=== PATIENT | male | born 1965 | race African-American/Black ===

== ENCOUNTER 2016-11-22 20:34 | Emergency (ER) | payer MEDICAID, OTHER ==
[~2016-11-22] VITALS: Ht 195.6 cm; Wt 99.0 kg
[2016-11-22 22:23] LABS: ANION GAP 13; CARBON DIOXIDE 26 mEq/L (21-32); CHLORIDE 107 mEq/L (98-107); INDEX HEMOLYSI 1 (1-3); INDEX ICTERIC 1 (1-4); INDEX LIPEMIC 1 (1-3); UREA NITROGEN BLOOD 15 mg/dL (7-21); eGFR > 60 mL/min (>60)
[2016-11-22 22:24] LABS: BASOPHILS % 0.4 % (0.0-2.0); EOSINOPHILS % 0.1 % (0.0-5.0); HEMATOCRIT. 46.9 % (42.0-52.0); HEMOGLOBIN. 15.9 g/dL (14.0-18.0); LYMPHOCYTES % 13.8 % (20.0-50.0); MEAN CORPUSCULAR HEMOGLOBIN 29.7 pg (28.0-32.0); MEAN CORPUSCULAR HGB CONC 33.9 g/dL (31.0-37.0); MEAN CORPUSCULAR VOLUME 87.6 fL (80.0-94.0); MEAN PLATELET VOLUME 7.5 fl (7.4-10.4); MONOCYTES % 6.5 % (2.0-8.0); NEUTROPHILS % 79.2 % (40.0-76.0); PLATELET 249 x1000/uL (130-400); RED BLOOD CELL COUNT 5.35 mill/uL (4.7-6.1); WHITE BLOOD COUNT 8.9 x1000/uL (4.5-11.0)
[2016-11-22 23:00] VITALS: BP 142/76
== END 2016-11-22 23:01 | disposition home or self-care (01) ==
LOC: ER 21:00
DX: R33.9 Retention of urine, unspecified (principal); N40.0 Benign prostatic hyperplasia without lower urinary tract symptoms; I10 Essential (primary) hypertension; Z90.49 Acquired absence of other specified parts of digestive tract
CPT/HCPCS: 36415; 80048; 85025; 99284; Z7610

== ENCOUNTER 2016-11-23 01:51 | Emergency (ER) | payer MEDICAID, OTHER ==
[~2016-11-23] VITALS: Ht 185.4 cm; Wt 91.0 kg
[2016-11-23 03:10] VITALS: BP 147/76
== END 2016-11-23 03:11 | disposition home or self-care (01) ==
LOC: ER 02:00
DX: R33.9 Retention of urine, unspecified (principal); I10 Essential (primary) hypertension; Z90.49 Acquired absence of other specified parts of digestive tract
CPT/HCPCS: 99283; Z7610

== ENCOUNTER 2016-11-23 06:29 | Emergency (ER) | payer OTHER ==
[~2016-11-23] VITALS: Ht 193 cm; Wt 93.0 kg
[2016-11-23 07:54] LABS: BASOPHILS % 0.7 % (0.0-2.0); EOSINOPHILS % 0.1 % (0.0-5.0); HEMATOCRIT. 45.5 % (42.0-52.0); HEMOGLOBIN. 15.3 g/dL (14.0-18.0); LYMPHOCYTES % 8.5 % (20.0-50.0); MEAN CORPUSCULAR HEMOGLOBIN 29.4 pg (28.0-32.0); MEAN CORPUSCULAR HGB CONC 33.6 g/dL (31.0-37.0); MEAN CORPUSCULAR VOLUME 87.5 fL (80.0-94.0); MEAN PLATELET VOLUME 7.2 fl (7.4-10.4); MONOCYTES % 6.5 % (2.0-8.0); NEUTROPHILS % 84.2 % (40.0-76.0); PLATELET 236 x1000/uL (130-400); RED CELL DISTRIBUTION WIDTH 13.8 % (11.6-14.6); WHITE BLOOD COUNT 8.6 x1000/uL (4.5-11.0)
[2016-11-23 08:02] LABS: ANION GAP 10; CARBON DIOXIDE 30 mEq/L (21-32); CHLORIDE 107 mEq/L (98-107); INDEX HEMOLYSI 1 (1-3); INDEX ICTERIC 1 (1-4); INDEX LIPEMIC 1 (1-3); UREA NITROGEN BLOOD 11 mg/dL (7-21)
[2016-11-23 08:05] LABS: eGFR > 60 mL/min (>60)
[2016-11-23 09:53] LABS: CLARITY URINE CLOUDY (CLEAR); COLOR URINE YELLOW (YELLOW); GLUCOSE URINE NEGATIVE (NEGATIVE); KETONES URINE TRACE (NEGATIVE); LEUKOCYTE ESTERASE URINE NEGATIVE (NEGATIVE); NITRITE URINE NEGATIVE (NEGATIVE); OCCULT BLOOD URINE TRACE (NEGATIVE); PH URINE 7.5 (4.5-8.0); PROTEIN URINE NEGATIVE (NEGATIVE); SPECIFIC GRAVITY URINE 1.014 (1.005-1.030); UROBILINOGEN URINE 0.2 E.U./dL (0.2-1.0)
[2016-11-23 10:20] LABS: RBC URINE 0-2 /hpf (0-2); WBC URINE NONE SEEN /hpf (0-2)
[2016-11-23 10:21] LABS: BACTERIA URINE 1+; SQUAMOUS EPITHELIAL CELL URINE NONE SEEN /lpf (RARE/1+)
[2016-11-23 11:04] VITALS: BP 146/98
== END 2016-11-23 11:02 | disposition home or self-care (01) ==
LOC: ER 06:40
DX: R33.8 Other retention of urine (principal)
CPT/HCPCS: 36415; 80048; 81001; 85025; 99284

== ENCOUNTER 2016-11-23 18:59 | Emergency (ER) | payer OTHER ==
[~2016-11-23] VITALS: Ht 195.6 cm; Wt 97.0 kg
[2016-11-24 01:20] LABS: CLARITY URINE CLEAR (CLEAR); COLOR URINE YELLOW (YELLOW); GLUCOSE URINE NEGATIVE (NEGATIVE); KETONES URINE 1+ (NEGATIVE); LEUKOCYTE ESTERASE URINE NEGATIVE (NEGATIVE); NITRITE URINE NEGATIVE (NEGATIVE); OCCULT BLOOD URINE 1+ (NEGATIVE); PH URINE 5.5 (4.5-8.0); PROTEIN URINE NEGATIVE (NEGATIVE); SPECIFIC GRAVITY URINE 1.023 (1.005-1.030); UROBILINOGEN URINE 0.2 E.U./dL (0.2-1.0)
[2016-11-24 01:22] LABS: BACTERIA URINE NONE SEEN; CALCIUM PHOSPHATE CRYSTALS UR NONE SEEN /lpf; RBC URINE 0-2 /hpf (0-2); SQUAMOUS EPITHELIAL CELL URINE NONE SEEN /lpf (RARE/1+); WAXY CASTS URINE NONE SEEN /lpf; WBC URINE 0-2 /hpf (0-2); YEAST URINE NONE SEEN
[2016-11-24 04:30] VITALS: BP 143/86
== END 2016-11-24 04:31 | disposition home or self-care (01) ==
LOC: ER 19:01
DX: R35.0 Frequency of micturition (principal); I10 Essential (primary) hypertension
CPT/HCPCS: 36415; 81001; 84153; 99284; Z7610

== ENCOUNTER 2016-12-03 23:48 | Emergency (ER) | payer OTHER ==
[~2016-12-03] VITALS: Ht 195.6 cm; Wt 96.0 kg
[2016-12-04 00:45] LABS: CLARITY URINE CLEAR (CLEAR); COLOR URINE YELLOW (YELLOW); GLUCOSE URINE NEGATIVE (NEGATIVE); KETONES URINE 1+ (NEGATIVE); LEUKOCYTE ESTERASE URINE NEGATIVE (NEGATIVE); NITRITE URINE NEGATIVE (NEGATIVE); OCCULT BLOOD URINE TRACE (NEGATIVE); PROTEIN URINE NEGATIVE (NEGATIVE); SPECIFIC GRAVITY URINE 1.023 (1.005-1.030); UROBILINOGEN URINE 0.2 E.U./dL (0.2-1.0)
[2016-12-04 00:46] LABS: BACTERIA URINE NONE SEEN; CALCIUM PHOSPHATE CRYSTALS UR NONE SEEN /lpf; SQUAMOUS EPITHELIAL CELL URINE NONE SEEN /lpf (RARE/1+); WAXY CASTS URINE NONE SEEN /lpf; WBC URINE 0-2 /hpf (0-2); YEAST URINE NONE SEEN
[2016-12-04 01:45] VITALS: BP 115/67
== END 2016-12-04 01:45 | disposition home or self-care (01) ==
LOC: ER 23:50
DX: R33.9 Retention of urine, unspecified (principal); N40.0 Benign prostatic hyperplasia without lower urinary tract symptoms; I10 Essential (primary) hypertension; R10.30 Lower abdominal pain, unspecified; Z90.49 Acquired absence of other specified parts of digestive tract
CPT/HCPCS: 51702; 81001; 99284; Z7610

== ENCOUNTER 2017-06-07 07:03 | Emergency (ER) | payer OTHER ==
[~2017-06-07] VITALS: Ht 195.6 cm; Wt 95.0 kg
[2017-06-07 07:12] VITALS: BP 127/70
== END 2017-06-07 10:03 | disposition left against medical advice (07) ==
LOC: ER 07:03
DX: H61.21 Impacted cerumen, right ear (principal)
CPT/HCPCS: 69209; 99282; X7700; Z7610

== ENCOUNTER 2019-07-18 01:15 | Emergency (ER) | payer OTHER ==
[~2019-07-18] VITALS: Ht 195.6 cm; Wt 103.0 kg
[2019-07-18] MEDS ORDERED: SODIUM CHLORIDE 0.9% 1,000 ML IV ONE (01:36)
[2019-07-18] MEDS ORDERED: ASPIRIN 81MG TABLET PO ONE (01:45)
[2019-07-18] MEDS ORDERED: DILTIAZEM HCL 120MG CAPSULE CD 24HR PO ONE (01:45)
[2019-07-18 02:15] LABS: BASOPHILS % 0.7 % (0.0-2.0); EOSINOPHILS % 1.8 % (0.0-5.0); HEMATOCRIT. 46.8 % (42.0-52.0); HEMOGLOBIN. 15.9 g/dL (14.0-18.0); LYMPHOCYTES % 23.3 % (20.0-50.0); MEAN CORPUSCULAR HEMOGLOBIN 29.7 pg (28.0-32.0); MEAN CORPUSCULAR VOLUME 87.3 fL (80.0-94.0); MEAN PLATELET VOLUME 6.8 fl (7.4-10.4); MONOCYTES % 8.3 % (2.0-8.0); NEUTROPHILS % 65.9 % (40.0-76.0); PLATELET 272 x1000/uL (130-400); RED BLOOD CELL COUNT 5.36 mill/uL (4.7-6.1); RED CELL DISTRIBUTION WIDTH 14.4 % (11.6-14.6)
[2019-07-18 02:16] LABS: CHLORIDE 108 mEq/L (98-107)
[2019-07-18 02:23] LABS: ETHANOL BLOOD < 10 mg/dL
[2019-07-18 02:28] LABS: T4 FREE 0.87 ng/dL (0.76-1.46)
[2019-07-18 02:39] LABS: *BENZODIAZEPINES SCREEN URINE NEGATIVE (NEGATIVE); *COCAINE SCREEN URINE NEGATIVE (NEGATIVE); METHADONE URINE SCREEN NEGATIVE (NEGATIVE); OPIATES URINE SCREEN NEGATIVE (NEGATIVE)
[2019-07-18 02:40] LABS: *AMPHETAMINES SCREEN URINE NEGATIVE (NEGATIVE); *BARBITURATES SCREEN URINE NEGATIVE (NEGATIVE); CANNABINOID URINE SCREEN NEGATIVE (NEGATIVE); PHENCYCLIDINE URINE SCREEN NEGATIVE (NEGATIVE)
[2019-07-18 03:12] LABS: PARTIAL THROMBOPLASTIN TIME 29.6 sec (23.4-31.0); PROTHROMBIN TIME 10.2 sec (9.6-11.0)
[2019-07-18 06:00] VITALS: BP 129/82
[2019-07-18] MEDS ORDERED: ENOXAPARIN 100MG/ML SYR SUBCUT SCH (06:00)
== END 2019-07-18 06:29 | disposition short-term general hospital (02) ==
LOC: ER 01:15
DX: I48.91 Unspecified atrial fibrillation (principal); F41.9 Anxiety disorder, unspecified; I10 Essential (primary) hypertension; N40.0 Benign prostatic hyperplasia without lower urinary tract symptoms
CPT/HCPCS: 36415; 71045; 80053; 80305; 80320; 83880; 84439; 84443; 84484; 85025; 85379; 85610; 85730; 93005; 96372; 99285; J1650; J7030; Z7610; G0480

== ENCOUNTER 2023-11-19 17:03 | Emergency (ER) | payer OTHER ==
[~2023-11-19] VITALS: Ht 190.5 cm; Wt 90.0 kg
[2023-11-19 17:11] VITALS: O2SAT 97
[2023-11-19 19:54] LABS: BASOPHILS % 0.5 % (0.0-2.0); EOSINOPHILS % 0.1 % (0.0-5.0); HEMATOCRIT. 47.8 % (42.0-52.0); LYMPHOCYTES % 9.1 % (20.0-50.0); MEAN CORPUSCULAR HEMOGLOBIN 29.7 pg (28.0-32.0); MEAN CORPUSCULAR HGB CONC 33.4 g/dL (31.0-37.0); MEAN CORPUSCULAR VOLUME 88.7 fL (80.0-94.0); MEAN PLATELET VOLUME 7.2 fl (7.4-10.4); MONOCYTES % 4.6 % (2.0-8.0); NEUTROPHILS % 85.7 % (40.0-76.0); PLATELET 311 x1000/uL (130-400); RED BLOOD CELL COUNT 5.39 mill/uL (4.7-6.1); RED CELL DISTRIBUTION WIDTH 14.1 % (11.6-14.6); WHITE BLOOD COUNT 12.6 x1000/uL (4.5-11.0)
[2023-11-19 20:06] LABS: ALANINE AMINOTRANSFERASE 21 IU/L (10-49); ALBUMIN 4.9 g/dL (3.2-4.8); ASPARTATE AMINOTRANSFERASE 24 IU/L (<34); BILIRUBIN TOTAL 0.9 mg/dL (0.1-1.0); CALCIUM 9.4 mg/dL (8.7-10.4); CARBON DIOXIDE 26 mEq/L (21-32); CHLORIDE 107 mEq/L (98-107); CREATININE 1.1 mg/dL (0.6-1.3); GLUCOSE 106 mg/dL (70-105); POTASSIUM 3.4 mEq/L (3.5-5.1); PROTEIN TOTAL 8.3 g/dL (6.0-8.3); SODIUM 141 mEq/L (136-145); UREA NITROGEN BLOOD 16 mg/dL (9-23)
[2023-11-19 21:52] LABS: CLARITY URINE CLEAR (CLEAR); COLOR URINE YELLOW (YELLOW); GLUCOSE URINE NEGATIVE (NEGATIVE); KETONES URINE NEGATIVE (NEGATIVE); LEUKOCYTE ESTERASE URINE NEGATIVE (NEGATIVE); NITRITE URINE NEGATIVE (NEGATIVE); OCCULT BLOOD URINE 3+ (NEGATIVE); PH URINE 5.5 (4.5-8.0); PROTEIN URINE TRACE (NEGATIVE); SPECIFIC GRAVITY URINE 1.018 (1.005-1.030); UROBILINOGEN URINE 0.2 E.U./dL (0.2-1.0)
[2023-11-19 22:06] LABS: BACTERIA URINE NONE SEEN; CALCIUM OXALATE CRYSTALS URINE 1+ /lpf; RBC URINE 50-100 /hpf (0-2); SQUAMOUS EPITHELIAL CELL URINE RARE /lpf (RARE/1+); WBC URINE 0-2 /hpf (0-2)
[2023-11-19] MEDS ORDERED: NITR-87 MT (22:47)
[2023-11-19 23:00] VITALS: TEMP 98.4
[2023-11-19] MEDS ORDERED: IBUPROFEN 800MG TABLET PO ONE (23:00)
[2023-11-19 23:17] VITALS: BP 148/84; PULSE 98; RESP 18
[2023-11-19] MEDS: IBUPROFEN 400MG TABLET PO NR (23:17)
[2023-11-19] MEDS: NITROFURANTOIN 100MG M/M CAPSULE PO ONE (23:17)
== END 2023-11-19 23:50 | disposition home or self-care (01) ==
LOC: ER 17:03
DX: R31.9 Hematuria, unspecified (principal); I10 Essential (primary) hypertension
CPT/HCPCS: 99284; 76770; 71045; 80053; 81003; 85025; 36415; P9612

== ENCOUNTER 2024-05-04 16:05 | Emergency (ER) | payer MEDICAID ==
[~2024-05-04] VITALS: Ht 182.9 cm; Wt 67.0 kg
[~2024-05-04 16:05] MED LIST: NITR-87 MT
[2024-05-04 16:18] VITALS: O2SAT 97
[2024-05-04] MEDS: HYDROCODONE/ACETAMINOPHEN 5/325MG TABLET PO ONE (18:11)
[2024-05-04 18:26] LABS: CLARITY URINE CLEAR (CLEAR); COLOR URINE YELLOW (YELLOW); GLUCOSE URINE NEGATIVE (NEGATIVE); KETONES URINE NEGATIVE (NEGATIVE); LEUKOCYTE ESTERASE URINE NEGATIVE (NEGATIVE); NITRITE URINE NEGATIVE (NEGATIVE); OCCULT BLOOD URINE TRACE (NEGATIVE); PH URINE 5.5 (4.5-8.0); PROTEIN URINE 1+ (NEGATIVE); SPECIFIC GRAVITY URINE 1.022 (1.005-1.030); UROBILINOGEN URINE 0.2 E.U./dL (0.2-1.0)
[2024-05-04 18:45] LABS: BACTERIA URINE 1+; COARSE GRANULAR CASTS URINE 0-5 /lpf; RBC URINE 0-2 /hpf (0-2); SQUAMOUS EPITHELIAL CELL URINE FEW /lpf (RARE/1+); WBC URINE 0-2 /hpf (0-2)
[2024-05-04 20:00] VITALS: BP 135/86; PULSE 79; RESP 18; TEMP 37.05852; O2SAT 99
== END 2024-05-04 20:04 | disposition home or self-care (01) ==
LOC: ER 16:05
DX: R33.9 Retention of urine, unspecified (principal); Z88.1 Allergy status to other antibiotic agents; Z88.2 Allergy status to sulfonamides
CPT/HCPCS: 51702; 81003; 99284

== ENCOUNTER 2025-02-21 16:20 | Emergency (ER) | payer OTHER ==
[~2025-02-21] VITALS: Ht 182.9 cm; Wt 100.0 kg
[~2025-02-21 16:20] MED LIST changes: +ALPR-339 MT; +ALPR0.5T PO; +AMLO10TA80 PO; +APIX5TAB PO; +DIPH25CA83 PO; +FINA-37 PO; +FLEC100T2 PO; +LISI40TA20 PO; +METH-653 GT; +METO200T34 PO; +PROT20 MT; +TAMS-54 PO; +TRAZ-251 PO
[2025-02-21 16:30] VITALS: O2SAT 99
[2025-02-21 17:44] LABS: BASOPHILS % 0.7 % (0.0-2.0); EOSINOPHILS % 0.4 % (0.0-5.0); HEMATOCRIT. 39.9 % (42.0-52.0); HEMOGLOBIN. 13.6 g/dL (14.0-18.0); LYMPHOCYTES % 16.8 % (20.0-50.0); MEAN CORPUSCULAR HEMOGLOBIN 30.3 pg (28.0-32.0); MEAN CORPUSCULAR HGB CONC 34.2 g/dL (31.0-37.0); MEAN CORPUSCULAR VOLUME 88.6 fL (80.0-94.0); MONOCYTES % 7.5 % (2.0-8.0); NEUTROPHILS % 74.6 % (40.0-76.0); PLATELET 235 x1000/uL (130-400); WHITE BLOOD COUNT 8.4 x1000/uL (4.5-11.0)
[2025-02-21 17:54] LABS: PROTHROMBIN TIME 10.9 sec (9.6-11.0)
[2025-02-21 17:59] LABS: CHLORIDE 106 mEq/L (98-107); SODIUM 142 mEq/L (136-145)
[2025-02-21 18:00] LABS: CALCIUM 9.6 mg/dL (8.7-10.4); CARBON DIOXIDE 28 mEq/L (21-32)
[2025-02-21 18:05] LABS: CREATININE 1.3 mg/dL (0.6-1.3); GLUCOSE 105 mg/dL (70-105); UREA NITROGEN BLOOD 17 mg/dL (9-23)
[2025-02-21 18:07] LABS: ALANINE AMINOTRANSFERASE 24 IU/L (10-49); ALBUMIN 4.5 g/dL (3.2-4.8); ASPARTATE AMINOTRANSFERASE 19 IU/L (<34)
[2025-02-21 18:08] LABS: BILIRUBIN DIRECT 0.2 mg/dL (<=3.0); BILIRUBIN TOTAL 0.6 mg/dL (0.1-1.0); PROTEIN TOTAL 6.8 g/dL (6.0-8.3)
[2025-02-21 18:17] LABS: CLARITY URINE CLOUDY (CLEAR); COLOR URINE RED (YELLOW); GLUCOSE URINE NEGATIVE (NEGATIVE); KETONES URINE NEGATIVE (NEGATIVE); LEUKOCYTE ESTERASE URINE 1+ (NEGATIVE); NITRITE URINE NEGATIVE (NEGATIVE); OCCULT BLOOD URINE 3+ (NEGATIVE); PROTEIN URINE 1+ (NEGATIVE); SPECIFIC GRAVITY URINE 1.023 (1.005-1.030)
[2025-02-21 19:07] LABS: BACTERIA URINE 1+; SQUAMOUS EPITHELIAL CELL URINE RARE /lpf (RARE/1+)
[2025-02-21 19:08] LABS: RBC URINE 25-50 /hpf (0-2)
[2025-02-21] MEDS ORDERED: CEPH500C2 MT (19:22)
[2025-02-21] MEDS: CEPHALEXIN 250MG CAPSULE PO NR (19:45)
[2025-02-21 19:47] VITALS: BP 117/73; PULSE 76; RESP 15; TEMP 37.1; O2SAT 96
== END 2025-02-21 20:47 | disposition home or self-care (01) ==
LOC: ER 16:20
DX: R31.9 Hematuria, unspecified (principal); I10 Essential (primary) hypertension; I48.91 Unspecified atrial fibrillation; Z79.899 Other long term (current) drug therapy; Z79.01 Long term (current) use of anticoagulants; Z98.890 Other specified postprocedural states; Z88.2 Allergy status to sulfonamides; Z88.1 Allergy status to other antibiotic agents
CPT/HCPCS: 99284; 76770; 80076; 80048; 81003; 85025; 85610; 36415; A6449

== ENCOUNTER 2025-02-21 22:40 | Emergency (ER) | payer OTHER ==
[~2025-02-21] VITALS: Ht 193 cm; Wt 105.0 kg
[~2025-02-21 22:40] MED LIST changes: +CEPH500C2 MT
[2025-02-21 22:45] VITALS: O2SAT 98
[2025-02-21 23:16] VITALS: BP 112/67; PULSE 102; RESP 22; TEMP 36.8; O2SAT 97
== END 2025-02-22 02:52 | disposition left against medical advice (07) ==
LOC: ER 22:40
DX: R33.8 Other retention of urine (principal); Z53.21 Procedure and treatment not carried out due to patient leaving prior to being seen by health care provider

== ENCOUNTER 2025-05-08 18:52 | Emergency (ER) | payer OTHER ==
[~2025-05-08] VITALS: Ht 188 cm; Wt 90.0 kg
[2025-05-08 19:06] VITALS: O2SAT 100
[2025-05-08 21:26] VITALS: BP 151/87; PULSE 99; RESP 20; TEMP 36.8; O2SAT 99
== END 2025-05-08 21:57 | disposition home or self-care (01) ==
LOC: ER 18:53
DX: N40.1 Benign prostatic hyperplasia with lower urinary tract symptoms (principal); R33.8 Other retention of urine; I10 Essential (primary) hypertension; F10.90 Alcohol use, unspecified, uncomplicated; I48.91 Unspecified atrial fibrillation; Z79.899 Other long term (current) drug therapy; Z88.1 Allergy status to other antibiotic agents; Z88.2 Allergy status to sulfonamides; Y90.9 Presence of alcohol in blood, level not specified
CPT/HCPCS: 51702; 99284

== ENCOUNTER 2025-05-14 10:27 | Emergency (ER) | payer OTHER ==
[~2025-05-14] VITALS: Ht 193 cm; Wt 100.0 kg
[2025-05-14 10:30] VITALS: O2SAT 98
[2025-05-14 12:01] LABS: CLARITY URINE TURBID (CLEAR); COLOR URINE DARK YELLOW (YELLOW); GLUCOSE URINE NEGATIVE (NEGATIVE); KETONES URINE TRACE (NEGATIVE); LEUKOCYTE ESTERASE URINE 3+ (NEGATIVE); NITRITE URINE NEGATIVE (NEGATIVE); OCCULT BLOOD URINE 3+ (NEGATIVE); PH URINE 5.5 (4.5-8.0); PROTEIN URINE 2+ (NEGATIVE); SPECIFIC GRAVITY URINE 1.021 (1.005-1.030); UROBILINOGEN URINE 1.0 E.U./dL (0.2-1.0)
[2025-05-14 12:23] LABS: BACTERIA URINE 3+; RBC URINE 50-100 /hpf (0-2); SQUAMOUS EPITHELIAL CELL URINE RARE /lpf (RARE/1+); WBC URINE TNTC /hpf (0-2); YEAST URINE NONE SEEN
[2025-05-14] MEDS ORDERED: CEFP200T13 MT (13:22)
[2025-05-14 13:44] VITALS: BP 129/76; PULSE 66; RESP 18; TEMP 37.2; O2SAT 97
== END 2025-05-14 13:46 | disposition home or self-care (01) ==
LOC: ER 10:27
DX: N39.0 Urinary tract infection, site not specified (principal); Z46.6 Encounter for fitting and adjustment of urinary device; F10.90 Alcohol use, unspecified, uncomplicated; I10 Essential (primary) hypertension; I48.91 Unspecified atrial fibrillation; Z79.899 Other long term (current) drug therapy; Z87.442 Personal history of urinary calculi; Z88.1 Allergy status to other antibiotic agents; Z88.2 Allergy status to sulfonamides; Y90.9 Presence of alcohol in blood, level not specified
CPT/HCPCS: 81003; 87077; 87186; 99283